=== PATIENT | female | born 2000 | race African-American/Black ===

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

== ENCOUNTER 2021-11-09 16:48 | Emergency (ER) | payer MEDICAID ==
[~2021-11-09] VITALS: Ht 160 cm; Wt 70.0 kg
[2021-11-09] MEDS ORDERED: ONDANSETRON HCL 4MG/2ML INJ IV STA ×2 (17:03→17:58)
[2021-11-09] MEDS ORDERED: SODIUM CHLORIDE 0.9% 1,000 ML IV ONE (17:15)
[2021-11-09] MEDS ORDERED: ACETAMINOPHEN 325MG TABLET PO ONE (17:15)
[2021-11-09 17:36] LABS: BASOPHILS % 0.6 % (0.0-2.0); EOSINOPHILS % 0.2 % (0.0-5.0); HEMATOCRIT. 28.2 % (36.0-48.0); HEMOGLOBIN. 8.8 g/dL (12.0-16.0); LYMPHOCYTES % 10.3 % (20.0-50.0); MEAN CORPUSCULAR HEMOGLOBIN 24.1 pg (28.0-32.0); MEAN CORPUSCULAR VOLUME 76.9 fL (81.0-99.0); MONOCYTES % 6.3 % (2.0-8.0); NEUTROPHILS % 82.6 % (40.0-76.0); PLATELET 376 x1000/uL (130-400); RED BLOOD CELL COUNT 3.66 mill/uL (4.2-5.4); RED CELL DISTRIBUTION WIDTH 17.8 % (11.6-14.6)
[2021-11-09 17:46] LABS: CHLORIDE 106 mEq/L (98-107)
[2021-11-09 17:52] LABS: ETHANOL BLOOD < 10 mg/dL
[2021-11-09 17:54] LABS: HCG SCREEN NEGATIVE
[2021-11-09 17:55] LABS: CLARITY URINE CLOUDY (CLEAR); COLOR URINE YELLOW (YELLOW); KETONES URINE 1+ (NEGATIVE); LEUKOCYTE ESTERASE URINE 1+ (NEGATIVE); NITRITE URINE NEGATIVE (NEGATIVE); OCCULT BLOOD URINE NEGATIVE (NEGATIVE); PROTEIN URINE NEGATIVE (NEGATIVE); SPECIFIC GRAVITY URINE 1.029 (1.005-1.030)
[2021-11-09] MEDS ORDERED: MORPHINE SULFATE 4 MG/ML CPJ (NOT FOR IM USE) IV STA (17:58)
[2021-11-09 18:17] LABS: *BARBITURATES SCREEN URINE NEGATIVE (NEGATIVE); *BENZODIAZEPINES SCREEN URINE NEGATIVE (NEGATIVE); *COCAINE SCREEN URINE NEGATIVE (NEGATIVE)
[2021-11-09 18:18] LABS: METHADONE URINE SCREEN NEGATIVE (NEGATIVE); OPIATES URINE SCREEN NEGATIVE (NEGATIVE); PHENCYCLIDINE URINE SCREEN NEGATIVE (NEGATIVE)
[2021-11-09 18:21] LABS: *AMPHETAMINES SCREEN URINE PRESUMTIVE POSITIVE (NEGATIVE); CANNABINOID URINE SCREEN PRESUMTIVE POSITIVE (NEGATIVE)
[2021-11-09] MEDS ORDERED: CEFTRIAXONE SODIUM 1 G/VIAL IM ONE (19:45)
[2021-11-09] MEDS ORDERED: ONDANSETRON 4MG ODT PO ONE (19:45)
[2021-11-09] MEDS ORDERED: HYDROCODONE/ACETAMINOPHEN 5/325MG TABLET PO ONE (19:45)
[2021-11-09] MEDS ORDERED: CEFTRIAXONE 1 G PREMIX 50 ML IV ONE (19:45)
[2021-11-09] MEDS ORDERED: IBUP-2028 MT (21:05)
[2021-11-09] MEDS ORDERED: CEPH500T MT (21:05)
[2021-11-09] MEDS ORDERED: IBUPROFEN 400MG TABLET PO ONE (21:15)
[2021-11-09] MEDS ORDERED: LORAZEPAM 2MG/ML CPJ IM ONE (23:30)
[2021-11-11] MEDS ORDERED: ACETAMINOPHEN 325MG TABLET PO NR (08:30)
[2021-11-11] MEDS: FLUOXETINE HCL 10 MG CAPSULE PO SCH (09:54)
[2021-11-12 07:39] VITALS: BP 110/62
[2021-11-12] MEDS: FLUOXETINE HCL 10 MG CAPSULE PO SCH (08:14)
== END 2021-11-12 12:45 | disposition home or self-care (01) ==
LOC: ER 16:48
DX: F32.A Depression, unspecified (principal); N39.0 Urinary tract infection, site not specified; J45.909 Unspecified asthma, uncomplicated; R45.851 Suicidal ideations; Z20.822 Contact with and (suspected) exposure to COVID-19; Z75.1 Person awaiting admission to adequate facility elsewhere; T74.51XA Adult forced sexual exploitation, confirmed, initial encounter
CPT/HCPCS: 36415; 71045; 74176; 80053; 80305; 80307; 80320; 80329; 81003; 83690; 84703; 85025; 87086; 93005; 96361; 96372; 96374; 96375; 99285; J0696; J2060; J2270; J2405; J7030; Q0162; Z7610; G0480